=== PATIENT | male | born 1975 | race African-American/Black ===

== ENCOUNTER 2025-01-08 09:23 | Outpatient (AMB) | payer BC, MEDICARE, SELFPAY ==
[2025-01-08 09:32] VITALS: BMI 31.9
--- NOTE | 2025-01-08 09:32 | HO.SPINEOV ---
Vital Signs 01/08/25 09:32 Height 6 ft 1 in Weight 242 lb BMI 31.9 Intake Visit Reasons: LBP Intake Note: Mr. Rodriguez is here today c/o low back pain that radiates down to the legs. 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 Allergies ciprofloxacin Allergy (Severe, Verified 01/08/25 09:35) Hives gabapentin Allergy (Severe, Verified 01/08/25 09:35) Respiratory Distress heparin Allergy (Severe, Verified 01/08/25 09:35) DVT metronidazole Allergy (Severe, Verified 01/08/25 09:35) Respiratory Distress NSAIDS (Non-Steroidal Anti-Inflamma Allergy (Severe, Verified 01/08/25 09:35) Hives Physical Exam Vital Signs: BMI result Body Mass Index 31.9 Assessment & Plan Assessment & Plan (1) Back pain: Code(s): M54.9 - Dorsalgia, unspecified Category: Medical Qualifiers: Back pain location: low back pain Chronicity: chronic Back pain laterality: bilateral Sciatica presence: with sciatica Sciatica laterality: bilateral sciatica Qualified Code(s): M54.42 - Lumbago with sciatica, left side; M54.41 - Lumbago with sciatica, right side; G89.29 - Other chronic pain Plan Dear colleague Thank you for referring Catherine to the office today with a chief complaint of severe low back pain. HPI: This 49-year-old male I know form my practice at [facility] when I performed an cervical spinal cord decompression and artificial disc replacement. He returns to me for longstanding back pain since 2015. The pain is located in the mid lumbar region, more to the right and initially was giving him radiation down his right leg but now also the left leg is involved. Repeat MRIs show excellent quality of the discs, no central spinal stenosis and mild right L4 and L5 foraminal stenosis without significant nerve compression. He tried several epidural steroid injections which would be beneficial for few months. However the latest ones are becoming less effective. He has been taking pain pills for at least 10 years for the symptoms. PMH: Hypertension, type 2 diabetes, hypercholesterolemia Medications: Baby aspirin, atorvastatin, celecoxib, director of scientific research blue tied, losartan, sumatriptan, hydroxyzine, metformin, tramadol, oxybutynin Allergies: Ciprofloxacin, metronidazole, gabapentin and heparin Social history: Nonsmoker Physical Exam: Pleasant male height 6'1 weight 242 lb. He is in discomfort. His difficulty getting out of chair. This pain on palpation of the lumbar spine. Flexion-extension is limited and painful. Extension is more limited than flexion. No motor or sensory deficits. Radiological Studies: MRI done at [facility] on 11/22/2024 shows mild foraminal stenosis on the right side L4 and L5. Impression/Plan: This patient is suffering from severe low back pain. From the records, it looks like he only had L5-S1 epidural steroid injections and no facet blocks. Therefore I recommended to block the medial branch of L4-L5 and S1 bilaterally. If he has an 80% success rate then this set of injections should be repeated and if positive again then I could do a medial branch block transsection for the patient endoscopically. Thank you for allowing me to participate in your patients care. total time spent was 50 minutes in counseling ,coordination of plan, personal review of imaging, surgical decision making and subsequent plan Kel Swift MD, PhD Sp[facility] Trained Neurosurgeon Director, [facility] Coding Level of Care Code New Pt Level 4 (91007) Diagnoses Chronic bilateral low back pain with bilateral sciatica M54.42; M54.41; G89.29 Back pain location: low back pain Chronicity: chronic Back pain laterality: bilateral Sciatica presence: with sciatica Sciatica laterality: bilateral sciatica
== END 2025-01-08 10:30 | disposition home or self-care (01) ==
LOC: HO.HNS 09:24
PROVIDERS: Visit Provider Neurological Surgery
DX: M54.42 Lumbago with sciatica, left side (principal); M54.41 Lumbago with sciatica, right side; G89.29 Other chronic pain
CPT/HCPCS: 99204

== ENCOUNTER → 2025-01-08 09:23 | Outpatient (BNVA) | payer BC, MEDICARE, SELFPAY | PROVIDERS: Visit Provider Neurological Surgery | DX: M54.42 Lumbago with sciatica, left side (principal); M54.41 Lumbago with sciatica, right side; G89.29 Other chronic pain; Z13.89 Encounter for screening for other disorder ==